=== PATIENT | female | born 1950 | race Caucasian/White ===

== ENCOUNTER 2024-06-24 11:36 | Outpatient (REF) | payer MEDICARE, SELFPAY ==
[2024-06-27 00:34] LABS: TS Negative Control Passed; TS Panel A 0; TS Panel B 0; TS Positive Control Passed; TSpotTB Negative (Negative)
== END 2024-06-24 11:37 | disposition home or self-care (01) ==
LOC: HO.LAB 11:36
PROVIDERS: PCP Family Medicine; Visit Provider Internal Medicine
DX: D84.9 Immunodeficiency, unspecified (principal); R76.11 Nonspecific reaction to tuberculin skin test without active tuberculosis
CPT/HCPCS: 36415; 86481; 99202

== ENCOUNTER 2024-06-24 11:36 | Outpatient (AMB) | payer MEDICARE, BC, SELFPAY ==
--- NOTE | 2024-06-24 11:28 | MHC.OFFVIS ---
Vital Signs 06/24/24 11:40 Height 5 ft 2 in Weight 127 lb BMI 23.2 Pulse 78 Pulse Source Pulse Oximeter Temp 98.5 F Temp Source Oral Pulse Oximetry (%) 97 Oxygen Delivery Method Room Air Intake Visit Reasons: reff stagia tb pos Allergies No Known Allergies Allergy (Verified 06/24/24 11:30) HPI Comments Details: She is a referral from Dr UlrichGI at [facility] who is being followed by him for lymphocytic colitis. She has presented with rectal bleeding. She had been intubated in ICU for four weeks she said after perforation colon during colonoscopy in 2009 . She had subsequent colonoscopy showed lymphocytic colitis. Most recently she had weightl loss and diarrhea was persistent. She had lost 20 pounds in last four months. She takes Lomotil and still ayala diarrhea. She is being considered candidate for Humira. 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 She has had Tuberculin skin tests negative every two years and reports prior negative quantiferon test. She has no h/o TB and no lymphadenopathy or hemoptysis. She has no travel in concerning areas and no one has had TB she knows. 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 Social History (Updated 06/30/24 @ 13:53 by Faby Fry MD) Alcohol intake: never Patient Tobacco Use Status: Former Tobacco user Tobacco use type: Cigarette Years Smoked: 90 pk/year Review of Systems Const All systems reviewed & are unremarkable except as noted in HPI and below Physical Exam Vital Signs: Last Vital Signs Temp 98.5 F 06/24/24 11:40 Pulse 78 06/24/24 11:40 Pulse Ox 97 06/24/24 11:40 Oxygen Delivery Method Room Air 10/02/24 11:40 BMI result Body Mass Index 23.2 Const General: cooperative HEENT Head: Yes normal to inspection Face and sinus: Yes normal facial exam Mouth: Normal oral and palatal mucosa present Teeth and gingiva: dentition normal Eyes General: appearance normal, both eyes and all related structures Pupils: Equal, round and reactive pupils present Resp Effort & Inspection: normal respiratory effort Cardio Rate: regular rate Rhythm: regular rhythm GI Palpation (GI): Soft to palpation and nontender General: Yes no CVA tenderness Back/Spine/Pelvis Back: no CVA tenderness Skin General skin exam: no rashes or lesions noted Neuro General: moves all extremities Cranial nerves: Yes Equal, round and reactive pupils present Extrem General: Yes normal to inspection Psych Appearance: grossly normal Assessment & Plan Assessment & Plan (1) Immunosuppression: Code(s): D84.9 - Immunodeficiency, unspecified Category: Medical (2) Positive TB test: Code(s): R76.11 - Nonspecific reaction to tuberculin skin test without active tuberculosis Category: Medical Plan: She has had positive TB testing,but all negative in past . Repeat testing by T spot negative today. Plan Would do no further TB testing unless changes in condition. No contraindication to any immunosuppression seen at this time. Orders: Orders T Spot TB 06/24/24 D84.9 - Immunodeficiency, unspecified Coding Level of Care Code New Pt Level 3 (54280) Diagnoses Immunosuppression D84.9 Positive TB test R76.11
[2024-06-24 11:40] VITALS: PULSE 78; TEMP 36.9; O2SAT 97; BMI 23.2
== END 2024-06-24 13:31 | disposition home or self-care (01) ==
LOC: HO.HID 11:36
PROVIDERS: PCP Family Medicine; Visit Provider Internal Medicine
DX: D84.9 Immunodeficiency, unspecified (principal); R76.11 Nonspecific reaction to tuberculin skin test without active tuberculosis
CPT/HCPCS: 99203